=== PATIENT | female | born 1945 | race Caucasian/White ===

== ENCOUNTER 2018-02-15 16:34 | Emergency (ER) | payer MEDICARE, BC ==
[~2018-02-15] VITALS: Ht 172.7 cm; Wt 95.5 kg
[2018-02-15 16:52] VITALS: Ht 172.7 cm; Wt 95.5 kg
[2018-02-15] MEDS ORDERED: ANUSOL-HC25 MG RC (16:53)
[2018-02-15 18:05] LABS: BASOPHILS 0.3 % (0-2); EOSINOPHILS 1.1 % (0-7); HEMATOCRIT 38.7 % (36.0-48.0); HEMOGLOBIN 12.8 g/dL (12-16); IMMATURE GRANULOCYTES 0.1 % (0-5); LYMPHOCYTES 31.2 % (15-50); MCH 30.3 pg (26.0-34.0); MCHC 33.1 g/dL (31.0-37.0); MCV 91.5 fL (80.0-100.0); MEAN PLATELET VOLUME 11.4 fL (7.4-10.4); NEUTROPHILS 58.3 % (40-80); PLATELET COUNT 242 10x3/uL (130-400); RBC 4.23 10x6/uL (4.00-5.40); RDW 13.5 % (11.5-14.5); WBC 7.4 10x3/uL (4.8-10.8)
[2018-02-15 18:29] LABS: ALBUMIN 3.3 g/dL (3.4-5.0); BILIRUBIN - TOTAL 0.26 mg/dL (0.2-1.3); CALCIUM 8.8 mg/dL (8.5-10.1); CARBON DIOXIDE 26.3 mmol/L (21.0-32.0); CREATININE - SERUM 0.9 mg/dL (0.6-1.3); POTASSIUM - SERUM 3.3 mmol/L (3.5-5.1); PROTEIN - SERUM 7.3 g/dL (6.4-8.2)
[2018-02-15 20:50] LABS: APPEARANCE CLEAR (CLEAR); BILIRUBIN NEGATIVE (NEGATIVE); COLOR YELLOW (YELLOW); GLUCOSE NEGATIVE (NEGATIVE); KETONE NEGATIVE (NEGATIVE); NITRITE NEGATIVE (NEGATIVE); PROTEIN NEGATIVE (NEGATIVE); UROBILINOGEN NORMAL (NORMAL)
[2018-02-15] MEDS ORDERED: LEVAQUIN750 MG PO (21:24)
[2018-02-15] MEDS ORDERED: ULTRAM50 MG PO (21:24)
[2018-02-15] MEDS ORDERED: FLAGYL500 MG PO (21:24)
[2018-02-15 21:40] VITALS: BP 159/84
== END 2018-02-15 21:39 | disposition home or self-care (01) ==
LOC: D.ER 16:34
PROVIDERS: Emergency Medicine
DX: K57.92 Diverticulitis of intestine, part unspecified, without perforation or abscess without bleeding (principal)

== ENCOUNTER 2018-07-14 10:43 | Emergency (ER) | payer MEDICARE, BC ==
[~2018-07-14] VITALS: Ht 172.7 cm; Wt 95.9 kg
[~2018-07-14 10:43] MED LIST: ANUSOL-HC25 MG RC; FLAGYL500 MG PO; LEVAQUIN750 MG PO; ULTRAM50 MG PO
[2018-07-14 10:52] VITALS: Ht 172.7 cm; Wt 95.9 kg
[2018-07-14 11:23] LABS: BASOPHILS 0.2 % (0-2); EOSINOPHILS 0.2 % (0-7); HEMATOCRIT 42.7 % (36.0-48.0); HEMOGLOBIN 14.2 g/dL (12-16); IMMATURE GRANULOCYTES 0.5 % (0-5); LYMPHOCYTES 13.3 % (15-50); MCH 30.4 pg (26.0-34.0); MCHC 33.3 g/dL (31.0-37.0); MCV 91.4 fL (80.0-100.0); MEAN PLATELET VOLUME 10.8 fL (7.4-10.4); MONOCYTES 4.9 % (2-11); NEUTROPHILS 80.9 % (40-80); PLATELET COUNT 257 10x3/uL (130-400); RBC 4.67 10x6/uL (4.00-5.40); WBC 10.5 10x3/uL (4.8-10.8)
[2018-07-14 11:36] LABS: ALBUMIN 3.6 g/dL (3.4-5.0); ALKALINE PHOSPHATASE 158 U/L (46-116); ALT (SGPT) 15 U/L (10-68); BILIRUBIN - TOTAL 0.27 mg/dL (0.2-1.3); CALC OSMOLALITY 278 mosm/kg (275-300); CALCIUM 8.8 mg/dL (8.5-10.1); CARBON DIOXIDE 30.1 mmol/L (21.0-32.0); CHLORIDE - SERUM 100 mmol/L (98-107); CREATININE - SERUM 0.8 mg/dL (0.6-1.3); POTASSIUM - SERUM 3.9 mmol/L (3.5-5.1); PROTEIN - SERUM 8.4 g/dL (6.4-8.2); SODIUM 137 mmol/L (136-145); UREA NITROGEN 9 mg/dL (7-18); eGFR NON AFRICAN AMERICAN 75 mL/min (90-120)
[2018-07-14 11:36] LABS: APPEARANCE HAZY (CLEAR); BILIRUBIN NEGATIVE (NEGATIVE); COLOR STRAW (YELLOW); GLUCOSE 250 mg/dL (NEGATIVE); KETONE NEGATIVE (NEGATIVE); NITRITE NEGATIVE (NEGATIVE); PROTEIN 2+ mg/dL (NEGATIVE); SPECIFIC GRAVITY 1.015 (1.005-1.020); UROBILINOGEN NORMAL (NORMAL)
[2018-07-14 11:37] LABS: GLUCOSE 201 mg/dL (74-106)
[2018-07-14 11:39] LABS: BACTERIA FEW /hpf (NONE SEEN); EPITHELIAL CELLS 0-5 /hpf (0-5); MUCUS >1+ /lpf (NONE SEEN); RED CELLS - URINE RARE /hpf (0-5); WHITE CELLS - URINE 0-5 /hpf (0-5); YEAST <1+ /hpf (NONE SEEN)
[2018-07-14 11:40] LABS: AMYLASE - SERUM 25 U/L (25-115); LIPASE 64 U/L (73-393)
[2018-07-14 11:42] LABS: TROPONIN-I < 0.017 ng/mL (0.000-0.060)
[2018-07-14] MEDS ORDERED: ZOFRAN ODT4 MG/UDTAB PO (12:22)
[2018-07-14 12:57] VITALS: BP 165/84
== END 2018-07-14 12:58 | disposition home or self-care (01) ==
LOC: D.ER 10:43
PROVIDERS: Emergency Medicine
DX: R11.10 Vomiting, unspecified (principal); E11.9 Type 2 diabetes mellitus without complications; R55 Syncope and collapse